=== PATIENT | female | born 1970 | race Caucasian/White ===

== ENCOUNTER 2018-02-09 11:35 | Emergency (ER) | payer OTHER ==
[2018-02-09 12:38] VITALS: BP 122/74
--- NOTE | 2018-02-09 13:22 | UC ---
Dizzy HPI HPI Summary: Pt c/o sudden onset of dizziness, room spinning, syncope, nausea, vomiting, 4 days ago. Pt states symptoms has improved, nearly resolved since initial onset but continues to feel a little, nauseated, has neck pain and stiffness. Denies, injury or trauma, does report high levels of distress at work and at home. Has c/o upper back and neck pain and stiffness. Has hx of degenerative disc disease - History Of Current Complaint Stated Complaint: HEAD ACHE,DIZZINESS Time Seen by Provider: 02/09/18 12:23 Hx Obtained From: Patient Hx Last Menstrual Period: 10/31/13 ?: No Onset/Duration: Sudden Onset, Resolved Timing: Constant Severity Initially: Severe Severity Currently: Mild Pain Intensity: 2 Character: Room Spinning, Dizzy Aggravating Factor(s): Headache, Position Change, Change In Head Position Alleviating Factor(s): Rest, Lying Down Associated Signs And Symptoms: Positive: Nausea, Vomiting, Unsteady Gait Related History: Similar Episode/Dx as - vertigo - Risk Factors CVA Risk Factor: Negative - Allergies/Home Medications Allergies/Adverse Reactions: Allergies Allergy/AdvReac Type Severity Reaction Status Date / Time betadine Allergy Severe Blisters Uncoded 02/09/18 12:40 Home Medications: Home Medications Ketorolac TAB * [Toradol TAB *] 10 mg PO Q4HR PRN 02/09/18 [History Confirmed ] PMH/Surg Hx/FS Hx/Imm Hx Previously Healthy: Yes - Surgical History Surgical History: Yes Surgery Procedure, Year, and Place: 2 biopsies- Breast. tubal ligation, HYSTERECTOMY, Rt Oopharectomy, LEFT SHOULDER - Family History Known Family History: Positive: Cardiac Disease - Social History Occupation: Employed Full-time Lives: With Family Alcohol Use: Rare Substance Use Type: None Smoking Status (MU): Former Smoker Have You Smoked in the Last Year: No Review of Systems Constitutional: Fatigue Skin: Negative Eyes: Negative ENT: Negative Respiratory: Negative Cardiovascular: Negative Gastrointestinal: Negative Genitourinary: Negative Motor: Negative Neurovascular: Negative Neurological: Headache Psychological: Negative Is Patient Immunocompromised?: No All Other Systems Reviewed And Are Negative: Yes Physical Exam Triage Information Reviewed: Yes Appearance: Well-Appearing Vital Signs: Initial Vital Signs Temp 98.9 F 02/09/18 12:23 Pulse 67 02/09/18 12:23 Resp 16 02/09/18 12:23 BP 122/74 02/09/18 12:23 Pulse Ox 99 02/09/18 12:23 Vital Signs Reviewed: Yes Eye Exam: Normal Eyes: Positive: Other: - PERRLA ENT Exam: Normal Dental Exam: Normal Neck exam: Normal Respiratory Exam: Normal Cardiovascular Exam: Normal Musculoskeletal Exam: Normal Musculoskeletal: Positive: Strength Intact, Other: - upperlats, trigger point right side, Neurological Exam: Normal Neurological: Positive: Alert, Muscle Tone Normal Psychological Exam: Normal Skin Exam: Normal Dizzy Course/Dx - Differential Dx/Diagnosis Differential Diagnosis/HQI/PQRI: Benign Paroxysmal Positional Vertigo, Other - stress, vertigo, Provider Diagnoses: dizziness. trigger point. stress/fatigued Discharge - Sign-Out/Discharge Documenting (check all that apply): Patient Departure - Discharge Plan Condition: Stable Disposition: HOME Prescriptions: Meclizine TAB* [Antivert 12.5 TAB*] 25 mg PO Q8H PRN #15 tab PRN Reason: Dizziness Patient Education Materials: Trigger Point Pain (ED), Dizziness (ED), Neck Pain (ED) Forms: *Work Release Referrals: Louise Barragan MD [Primary Care Provider] - As Soon As Possible - Billing Disposition and Condition Condition: STABLE Disposition: Home
== END 2018-02-09 13:32 | disposition home or self-care (01) ==
LOC: UCCORT 11:35
DX: R42 Dizziness and giddiness (principal); M79.1 Myalgia; F43.9 Reaction to severe stress, unspecified; R53.83 Other fatigue; R11.2 Nausea with vomiting, unspecified; R55 Syncope and collapse; M54.9 Dorsalgia, unspecified; M54.2 Cervicalgia; M25.60 Stiffness of unspecified joint, not elsewhere classified; Z88.8 Allergy status to other drugs, medicaments and biological substances; Z87.891 Personal history of nicotine dependence
CPT/HCPCS: 99212; G0463

== ENCOUNTER 2018-03-02 10:58 | Emergency (ER) | payer OTHER ==
[2018-03-02] MEDS ORDERED: Ketorolac INJ* 30 MG/ML 1 ML VIAL IV PUSH ONE (11:24)
[2018-03-02] MEDS ORDERED: Lidocaine 1%* 5 ML VIAL ONE (11:24)
[2018-03-02] MEDS ORDERED: NS 0.9% 1000 ML* 1,000 ML IV ONE (11:24)
[2018-03-02] MEDS ORDERED: diPHENhydraMINE IV* 50 MG/ML 1 ml VIAL (BENADRYL) IV ONE (11:24)
[2018-03-02] MEDS ORDERED: Metoclopramide IV* 5 MG/ML 2 ML VIAL IV ONE (11:24)
[2018-03-02] MEDS ORDERED: Lidocaine 1% INJ* 10 MG/ML 30 ML SDV INJ ONE (11:24)
[2018-03-02 11:36] LABS: ABS Basophils 0 10^3/ul (0-0.2); ABS Eosinophils 0.1 10^3/ul (0-0.6); ABS Lymphocytes 1.3 10^3/ul (1.0-4.8); ABS Monocytes 0.4 10^3/ul (0-0.8); ABS Neutrophils 3.2 10^3/ul (1.5-7.7); ABS Nucleated RBC 0 10^3/ul; Eosinophil % 1.6 % (0-6); Hematocrit 44 % (35-47); Lymphocyte % 24.9 % (25-47); Mean Corpuscular HGB Conc 34 g/dl (31-36); Mean Corpuscular Hemoglobin 31 pg (27-31); Mean Corpuscular Volume 91 fL (80-97); Mean Platelet Volume 8.2 um3 (7.4-10.4); Nucleated Red Blood Cells % 0; Platelet Count 247 10^3/ul (150-450); Red Blood Count 4.86 10^6/ul (4.00-5.40); Red Cell Distribution Width 13 % (10.5-15)
[2018-03-02 11:45] LABS: INR 0.9 (0.77-1.02)
[2018-03-02 11:58] LABS: EGFR Non-African American 61.8 (>60)
[2018-03-02 12:07] LABS: Body Fluid Source Cerebral Spinal
--- NOTE | 2018-03-02 12:08 | ED ---
Dizziness - HPI Summary HPI Summary: This is bernice Balbuena documenting for attending Dr. Marko Nuno This patient is a 47 year old F presenting to [facility] accompanied by her daughter with a chief complaint of dizziness since 02/22/18. She noted rotational dizziness the first night, but now the sx are constant lightheadedness, ASTORGA, intermittent numbness in hands and feet, aphasia, hearing changes, and claims she couldnt write her name. Pt denies back pain. FHx uterine, ovarian, cervical , breast, pancreatic, melanoma, in great aunts. Pt takes meclizine for dizziness , toradol for migraines. MRI due to dizziness, ASTORGA, leptomeningeal enhancement with edema, concern for metastatic cause, PMHx uterine, cervical cancer, SHx hysterectomy, Dr. Uriarte shared concern for possible breast cancer. - History Of Current Complaint Stated Complaint: HEADACHES/DIZZINESS/NUMBNESS IN HANDS & FEET Time Seen by Provider: 03/02/18 11:00 Hx Obtained From: Patient Onset/Duration: Still Present Timing: Constant Severity Initially: Moderate Severity Currently: Moderate Character: Lightheaded - current, Dizzy - at first Aggravating Factor(s): Nothing Alleviating Factor(s): Other - meclizine Associated Signs And Symptoms: Positive: Change In Medication, OTC Medications, Other: - ASTORGA. Negative: Visual Changes, Fever - Allergies/Home Medications Allergies/Adverse Reactions: Allergies Allergy/AdvReac Type Severity Reaction Status Date / Time Adhesive Tape Allergy Rash Verified 03/02/18 11:11 betadine Allergy Severe Blisters Uncoded 03/02/18 11:11 Home Medications: Home Medications Cyclobenzaprine TAB* [Flexeril 10 MG TAB*] 10 mg PO TID PRN 03/02/18 [History Confirmed 03/02/18] PMH/Surg Hx/FS Hx/Imm Hx Endocrine/Hematology History: Denies: Hx Diabetes Cardiovascular History: Denies: Hx Hypertension, Hx Pacemaker/ICD History: Denies: Hx Renal Disease Sensory History: Reports: Hx Contacts or Glasses Denies: Hx Hearing Aid Opthamlomology History: Reports: Hx Contacts or Glasses EENT History: Denies: Hx Deafness Neurological History: Reports: Hx Headaches Psychiatric History: Denies: Hx Panic Disorder - Cancer History Cancer Type, Location and Year: CERVICAL-2003 AND UTERINE CA-2013 Hx Chemotherapy: No Hx Radiation Therapy: No - Surgical History Surgery Procedure, Year, and Place: 2 biopsies- Breast. tubal ligation,. HYSTERECTOMY,. Rt Oopharectomy,. LEFT SHOULDER Infectious Disease History: Yes Infectious Disease History: Reports: Hx Hepatitis - h/o having + Hep C antibodies Denies: Traveled Outside the [place] in Last 30 Days - Family History Known Family History: Positive: Cardiac Disease, Other - breast, ovarian, uterine, pancreatic, skin cancer - Social History Alcohol Use: None Substance Use Type: Reports: None Hx Tobacco Use: Yes Smoking Status (MU): Former Smoker Have You Smoked in the Last Year: No Review of Systems Negative: Fever Negative: Blurred Vision, Diplopia Positive: Other - hearing loss Positive: no symptoms reported Negative: Myalgia - back Neurological: Other - dizziness, lightheadedness, aphasia, unable to write name (1x episode) Positive: Headache, Paresthesia, Numbness All Other Systems Reviewed And Are Negative: Yes Physical Exam - Summary Physical Exam Summary: Appearance: Well appearing, no pain distress Skin: warm, dry, reflects adequate perfusion Head/face: normal Eyes: EOMI, LUZ ELENA ENT: normal Neck: supple, non-tender, no-meningismus Respiratory: CTA, breath sounds present Cardiovascular: RRR, pulses symmetrical Abdomen: non-tender, soft Bowel Sounds: present Musculoskeletal: normal, strength/ROM intact Neuro: normal, sensory motor intact, A&Ox3, cranial nerves intact Triage Information Reviewed: Yes Vital Signs On Initial Exam: Initial Vitals Temp Pulse Resp BP Pulse Ox 98.3 F 86 18 146/79 99 03/02/18 11:05 03/02/18 11:05 03/02/18 11:05 03/02/18 11:05 03/02/18 11:05 Vital Signs Reviewed: Yes Procedures - Lumbar Puncture Midline Position: Sitting Aseptic Technique: Local Anesthesia Anesthesia Used: 1.0% Lido Spinal Needle Used: 22 Gauge Lumbar Puncture Note: 12 ccs clear fluid with single puncture, dressed with a band-aid. Diagnostics - Vital Signs Vital Signs Temp Pulse Resp BP Pulse Ox 03/02/18 11:05 98.3 F 86 18 146/79 99 - Laboratory Lab Results: Lab Results 03/02/18 03/02/18 03/02/18 Range/Units 11:22 11:22 11:22 WBC 5.0 (3.5-10.8) 10^3/ul RBC 4.86 (4.00-5.40) 10^6/ul Hgb 15.0 (12.0-16.0) g/dl Hct 44 (35-47) % MCV 91 (80-97) fL MCH 31 (27-31) pg MCHC 34 (31-36) g/dl RDW 13 (10.5-15) % Plt Count 247 (150-450) 10^3/ul MPV 8.2 (7.4-10.4) um3 Neut % (Auto) 64.3 (38-83) % Lymph % (Auto) 24.9 L (25-47) % Meeker % (Auto) 8.5 H (0-7) % Eos % (Auto) 1.6 (0-6) % Baso % (Auto) 0.7 (0-2) % Absolute Neuts (auto) 3.2 (1.5-7.7) 10^3/ul Absolute Lymphs (auto) 1.3 (1.0-4.8) 10^3/ul Absolute Monos (auto) 0.4 (0-0.8) 10^3/ul Absolute Eos (auto) 0.1 (0-0.6) 10^3/ul Absolute Basos (auto) 0 (0-0.2) 10^3/ul Absolute Nucleated RBC 0 10^3/ul Nucleated RBC % 0 INR (Anticoag Therapy) 0.90 (0.77-1.02) APTT 32.1 (26.0-36.3) seconds Sodium 140 (135-145) mmol/L Potassium 4.0 (3.5-5.0) mmol/L Chloride 105 (101-111) mmol/L Carbon Dioxide 28 (22-32) mmol/L Anion Gap 7 (2-11) mmol/L BUN 19 (6-24) mg/dL Creatinine 0.96 H (0.51-0.95) mg/dL Est GFR ( Amer) 74.7 (>60) Est GFR (Non-Af Amer) 61.8 (>60) BUN/Creatinine Ratio 19.8 (8-20) Glucose 80 (70-100) mg/dL Calcium 9.3 (8.6-10.3) mg/dL Total Bilirubin 0.40 (0.2-1.0) mg/dL AST 40 H (13-39) U/L ALT 73 H (7-52) U/L Alkaline Phosphatase 90 (34-104) U/L Total Protein 6.8 (6.4-8.9) g/dL Albumin 4.2 (3.2-5.2) g/dL Globulin 2.6 (2-4) g/dL Albumin/Globulin Ratio 1.6 (1-3) Result Diagrams: 03/02/18 11:22 03/02/18 11:22 Lab Statement: Any lab studies that have been ordered have been reviewed, and results considered in the medical decision making process. - CT Chest/A/P CT Interpretation: No Acute Changes CT Interpretation Completed By: Radiologist - NO ACUTE CT PATHOLOGY OF THE CHEST , ABDOMEN, OR PELVIS. NO LYMPHADENOPATHY BY SIZE CRITERIA. Dr. Zhu has reviewed this report. - EKG 1129 Cardiac Rate: NL - 78 EKG Rhythm: Sinus Rhythm ST Segment: Normal Ectopy: None EKG Interpretation: nl axis Re-Evaluation - Re-Evaluation First Eval Re-Evaluation Time: 14:05 Change: Unchanged Comment: Discussed discharge after dr. Uriarte sees pt in ED. Dizzy Course/Dx - Course Course Of Treatment: Patient presents by direction of primary care physician for evaluation for possible meningeal carcinomatosis. Oncologist has directed the care to include lumbar puncture, CT abdomen and pelvis and chest. The CT failed to identify any malignant source. The lumbar puncture shows protein of 47. Oncologist reviewed this and feels the patient can be safely discharged. I talked to Dr. Eduardo from neurology who will see the patient outpatient. She 'll be followed up by oncology and her primary care physician. - Diagnoses Provider Diagnoses: Vertigo, Carcinomatosis - Provider Notifications Discussed Care Of Patient With: Rubens Uriarte Time Discussed With Above Provider: 14:00 Instructed by Provider To: Other - Will see pt in ED, wants to discharge pt. Asked who radiologist who read CT was. Discharge - Sign-Out/Discharge Documenting (check all that apply): Patient Departure - discharge - Discharge Plan Condition: Stable Disposition: HOME Patient Education Materials: Vertigo (ED) Referrals: Tom Eduardo MD [Medical Doctor] - Louise Barragan MD [Primary Care Provider] - Rubens Uriarte MD [Medical Doctor] - - Billing Disposition and Condition Condition: STABLE Disposition: Home Consult Consult: [id number] Dr. Eduardo: discussed pt, discussion with dr. uriarte, dr uriarte will follow up with Dr. Eduardo.
[2018-03-02] MEDS ORDERED: Iohexol 300* (CONTRAST) 10 ML SDV IV ONE (12:25)
--- NOTE | 2018-03-02 13:18 | RAD ---
HISTORY: cancer eval COMPARISONS: March 25, 2016 TECHNIQUE: Multiple contiguous axial CT scans were obtained of the chest, abdomen, and pelvis after the administration of intravenous contrast. Coronal and sagittal multiplanar reformations are submitted for review.. Oral contrast was not administered. Delayed images were obtained through the abdomen and pelvis. FINDINGS: CHEST NECK AND THYROID: The lower neck and thyroid are unremarkable. CHEST WALL: There is no lower cervical, axillary, or supraclavicular lymphadenopathy by size criteria. HEART AND PERICARDIUM: The heart is unremarkable. AORTA AND PULMONARY VASCULATURE: The aorta and pulmonary vasculature are normal. MEDIASTINUM: There is no mediastinal lymphadenopathy by size criteria. JACKSON: There is no hilar lymphadenopathy by size criteria. AIRWAY AND ESOPHAGUS: The airway is unremarkable, without endobronchial filling defect. The esophagus is grossly normal. LUNG PARENCHYMA: The lungs are clear. PLEURA: No pleural abnormalities are noted. BONES AND SOFT TISSUES: No bone or soft tissue abnormalities are noted. ABDOMEN/PELVIS: LIVER: There is a stable low-attenuation lesion of the right lobe of liver that has imaging characteristics of a hemangioma on the previous examination. BILE DUCTS: There is no intrahepatic or extrahepatic biliary dilatation. GALLBLADDER: The gallbladder is normal, without pericholecystic inflammatory change. PANCREAS: The pancreas is normal, without mass or ductal dilatation. SPLEEN: Normal in size and appearance. UPPER GI TRACT: Evaluation of the gastrointestinal tract is limited by incomplete gastric distention. The upper GI tract is unremarkable. SMALL BOWEL & MESENTERY: The small bowel is normal in contour, course, and caliber. There is no obstruction or dilatation. COLON: The colon is normal in contour, course, caliber. There is no pericolonic inflammatory change. ADRENALS: Normal bilaterally. KIDNEYS: There is stable parapelvic renal cyst on the left. BLADDER: The bladder is smooth in contour. PELVIC ORGANS: The pelvic organs are not visualized. AORTA: The aorta is normal. IVC: Unremarkable LYMPH NODES: There is no lymphadenopathy by size criteria. ABDOMINAL WALL: There is no evidence for abdominal wall hernia. BONES AND SOFT TISSUES: There are mild diffuse degenerative changes. OTHER: None IMPRESSION: NO ACUTE CT PATHOLOGY OF THE CHEST, ABDOMEN, OR PELVIS. NO LYMPHADENOPATHY BY SIZE CRITERIA.
[2018-03-02 16:12] VITALS: BP 139/78
== END 2018-03-02 16:15 | disposition home or self-care (01) ==
LOC: ED 10:58
DX: R42 Dizziness and giddiness (principal); C80.0 Disseminated malignant neoplasm, unspecified; Z85.41 Personal history of malignant neoplasm of cervix uteri; Z90.710 Acquired absence of both cervix and uterus; Z80.41 Family history of malignant neoplasm of ovary; Z80.49 Family history of malignant neoplasm of other genital organs; Z87.891 Personal history of nicotine dependence; Z79.899 Other long term (current) drug therapy; Z88.8 Allergy status to other drugs, medicaments and biological substances
CPT/HCPCS: 36415; 62270; 71260; 74177; 80053; 82945; 84157; 85025; 85610; 85730; 86300; 86301; 86304; 86703; 87070; 87205; 88112; 89051; 93005; 96361; 96374; 96375; 99283; J1200; J1885; J2765; Q9967

== ENCOUNTER 2019-01-23 17:42 | Emergency (ER) | payer OTHER ==
[2019-01-23 18:30] VITALS: BP 127/84
--- NOTE | 2019-01-23 19:05 | UC ---
Knee Pain HPI - HPI Summary HPI Summary: 48-year-old female comes in with a chief complaint of right knee pain. 2 weeks ago patient was at work she was lifting a box had sudden onset of pain in the right knee. The worst pain in the right knee is an the anterior lateral aspect of the knee. She has swelling there. She feels unstable side to side. Pain is worse with flexion. Does not feel like us to get out. Also has pain in the back of any. Has had a history of injuring menisci in the past. - History of Current Complaint Chief Complaint: UCLowerExtremity Stated Complaint: W/C RIGHT KNEE INJURY Time Seen by Provider: 01/23/19 18:48 Hx Last Menstrual Period: 10/31/13 Pain Intensity: 6 - Allergies/Home Medications Allergies/Adverse Reactions: Allergies Allergy/AdvReac Type Severity Reaction Status Date / Time Adhesive Tape Allergy Rash Verified 01/23/19 18:18 betadine Allergy Severe Blisters Uncoded 01/23/19 18:18 Home Medications: Home Medications Ketorolac Tromethamine 10 mg PO Q6H PRN 01/23/19 [History Confirmed 01/23/19] Naproxen [Naproxen 250 mg tab] 500 mg PO DAILY PRN 01/23/19 [History Confirmed 01/23/19] Topiramate 25 mg PO BEDTIME PRN 01/23/19 [History Confirmed 01/23/19] PMH/Surg Hx/FS Hx/Imm Hx Previously Healthy: Yes - Surgical History Surgical History: Yes Surgery Procedure, Year, and Place: 2 biopsies- Breast. tubal ligation,. HYSTERECTOMY,. Rt Oopharectomy,. LEFT SHOULDER - Family History Known Family History: Positive: Cardiac Disease, Other - breast, ovarian, uterine, pancreatic, skin cancer - Social History Alcohol Use: Rare Substance Use Type: None Smoking Status (MU): Former Smoker Type: Smokeless Tobacco Amount Used/How Often: one tin/wk Length of Time of Smoking/Using Tobacco: 6 yrs. Have You Smoked in the Last Year: No Review of Systems All Other Systems Reviewed And Are Negative: Yes Constitutional: Positive: Negative Skin: Positive: Negative Eyes: Positive: Negative ENT: Positive: Negative Respiratory: Positive: Negative Cardiovascular: Positive: Negative Gastrointestinal: Positive: Negative Motor: Positive: Other - SEE HPI Neurovascular: Positive: Negative Musculoskeletal: Positive: Other: - SEE HPI Neurological: Positive: Negative Psychological: Positive: Negative Is Patient Immunocompromised?: No Physical Exam Triage Information Reviewed: Yes Appearance: Well-Appearing, No Pain Distress, Well-Nourished Vital Signs: Initial Vital Signs Temp 98.6 F 01/23/19 18:23 Pulse 68 01/23/19 18:23 Resp 18 01/23/19 18:23 BP 127/84 01/23/19 18:23 Pulse Ox 100 01/23/19 18:23 Vital Signs Reviewed: Yes Eye Exam: Normal Eyes: Positive: Conjunctiva Clear Neck: Positive: Supple Respiratory: Positive: No respiratory distress Musculoskeletal: Positive: Other: - The right knee the right knee is swollen in the anterolateral. There is some tenderness on the lateral collateral ligament. Patient denies any pain with Jayro's. No instability to exam. Increased pain with deep flexion. Neurological: Positive: Alert, Muscle Tone Normal Psychological Exam: Normal Psychological: Positive: Normal Response To Family, Age Appropriate Behavior Skin Exam: Normal Knee Pain Course/Dx - Course Course Of Treatment: I discussed the x-rays with the patient. I do not see a fracture there appears to be effusion radiologist reading is pending. Patient will bead picker a neoprene brace for support. She tells me she has new immobilizer is not really very full. She declined crutches. Overall the plan is to have her not lifting more than 20 pounds at work and follow-up with orthopedics or sports medicine for further evaluation. - Differential Dx/Diagnosis Provider Diagnosis: Right knee pain, Effusion, right knee Discharge - Sign-Out/Discharge Documenting (check all that apply): Patient Departure All imaging exams completed and their final reports reviewed: No - Discharge Plan Condition: Stable Disposition: HOME Patient Education Materials: Swollen Knee Joint (ED), Knee Pain (ED) Forms: *Work Release Referrals: Louise Barragan MD [Primary Care Provider] - Chandler Cárdenas MD [Medical Doctor] - [facility] [Provider Group] Additional Instructions: FOLLOW UP WITH ORTHOPEDICS OR SPORTS MEDICINE. GET RECHECKED SOONER IF YOUR CONDITION WORSENS OR ANY QUESTIONS OR CONCERNS. - Billing Disposition and Condition Condition: STABLE Disposition: Home
--- NOTE | 2019-01-24 10:17 | ED ---
Progress - Progress Note Progress Note: final read xray reviewed, and no acute findings other than effusion already mentioned by Dr Lockhart Course/Dx - Diagnoses Provider Diagnoses: Right knee pain, Effusion, right knee Discharge - Sign-Out/Discharge Documenting (check all that apply): Patient Departure All imaging exams completed and their final reports reviewed: Yes - Discharge Plan Condition: Stable Disposition: HOME Patient Education Materials: Swollen Knee Joint (ED), Knee Pain (ED) Forms: *Work Release Referrals: [facility] [Provider Group] Chandler Cárdenas MD [Medical Doctor] - Louise Barragan MD [Primary Care Provider] - Additional Instructions: FOLLOW UP WITH ORTHOPEDICS OR SPORTS MEDICINE. GET RECHECKED SOONER IF YOUR CONDITION WORSENS OR ANY QUESTIONS OR CONCERNS. - Billing Disposition and Condition Condition: STABLE Disposition: Home
== END 2019-01-23 19:41 | disposition home or self-care (01) ==
LOC: UCCORT 17:42
DX: M25.461 Effusion, right knee (principal); Z87.891 Personal history of nicotine dependence
CPT/HCPCS: 99211; G0463

== ENCOUNTER 2019-11-01 11:51 | Emergency (ER) | payer OTHER ==
--- OUTSIDE RECORDS SUMMARY | 2019-11-01 11:58 | XMS REPORT | Continuity of Care Document ---
:1970 External Reference #:[id number] Author Name Ethel Arteaga M.D. (transmitted by agent of provider Kiana Seo) Address [address] [place] [address] [place] [address] Care Team Providers Name Role Phone Savannah Hauser MD - Care Team Information Plumbing Service Technician [phone] Endocrinology, Diabetes & Metabolism Louise Barragan MD - Internal Care Team Information Plumbing Service Technician [phone] [facility] Care Team Information Plumbing Service Technician [phone] Disorder - Clinic/Center Problems Active Problems Provider Date Abnormal gait Tom Eduardo M.D. Onset: 03/03/2018 Localized, primary osteoarthritis Ethel Arteaga M.D. Onset: 10/09/2019 Social History Type Date Description Comments Sex Unknown Tobacco Use Start: Unknown End: Former Cigarette Smoker 1 Unknown 1/2 Packs Daily Smoking Status Reviewed: 10/16/19 Former Cigarette Smoker 1 1/2 Packs Daily ETOH Use Rarely consumes alcohol Tobacco Use Start: Unknown End: Patient is a former smoker Unknown Recreational Drug Use Denies Drug Use Exercise Type/Frequency Walks daily Allergies, Adverse Reactions, Alerts Active Allergies Reaction Severity Comments Date Betadine Blisters 06/01/2012 Medications Active Medications SIG Qnty Indications Ordering Date Provider Meloxicam 1 by mouth every 90tabs M25.561 Ethel Arteaga 10/09/2019 15mg Tablets day MDonovan Aimovig inject sq once a 1ml G43.009 Tom Juárez 09/07/2019 70mg/ml Solution layla Eduardo M.D. Auto-Inject Cyclobenzaprine HCL take 1 tablet by Unknown 10mg mouth three Tablets times a day if needed Ketorolac Tromethamine take 1 tablet by 20taumer Juárez 10mg mouth every 4 to Nurys Eduardo Tablets 6 hours if needed with food for five days. Meclizine HCL 2 as needed Unknown 12.5mg Tablets Naproxen Sodium as needed Unknown 220mg Capsules Triamcinolone Acetonide as directed Unknown 0.1% Ointment Medications Administered in Office Medication SIG Qnty Indications Ordering Provider Date Depomedrol 40MG Torey Lucas, DEEPALI 06/22/2019 Injection Depomedrol 40MG Torey Lucas, DEEPALI 06/22/2019 Injection Celestone 3 mg and 3mg Chandler Cárdenas MD 02/08/2019 Injection Immunizations Description No Information Available Vital Signs Date Vital Result Comment 10/16/2019 10:55am Height 65 inches 5'5" Weight 220.00 lb Heart Rate 76 /min BP Systolic 124 mmHg BP Diastolic 86 mmHg Body Temperature 96.8 F Pain Level 2 BMI (Body Mass Index) 36.6 kg/m2 10/09/2019 9:46am Height 65 inches 5'5" Weight 220.00 lb Heart Rate 83 /min BP Systolic 136 mmHg BP Diastolic 82 mmHg Body Temperature 98.0 F Pain Level 6 BMI (Body Mass Index) 36.6 kg/m2 Results Description No Information Available Procedures Date Code Description Status 09/04/2019 06027 Sleep Study Unattended,HRT Rate,Oxygen Sat,Resp Completed Effort/Airflow Medical Devices Description No Information Available Encounters Type Date Location Provider Dx Diagnosis Office Visit 10/09/2019 [facility] Ethel Arteaga, M25.561 Pain in right 9:30a at [facility].Asim knee M25.461 Effusion, right knee M17.11 Unilateral primary osteoarthritis, right knee M23.8x1 Other internal derangements of right knee Office Visit 10/05/2019 [facility] G47.33 Obstructive sleep 10:30a [facility] Benitez apnea (adult) Campaign Advisor (pediatric) G47.00 Insomnia, unspecified Office Visit 09/07/2019 [place], G43.009 Migraine w/o 3:30p [facility] IMPLEMENTATION LEAD aura, not Campaign Advisor intractable, w/o status migrainosus M54.2 Cervicalgia R26.89 Other abnormalities of gait and mobility Office Visit 09/04/2019 1:30p [facility] Brigitte G47.9 Sleep disorder, [facility] MD Pb unspecified Campaign Advisor G47.00 Insomnia, unspecified R53.83 Other fatigue Office Visit 05/11/2019 Ciara Rojas M22.41 Chondromalacia 10:00a [facility], MD price, right knee Tj Assessments Date Code Description Provider 10/16/2019 M25.561 Pain in right knee Ethel Chandler, M.D. 10/16/2019 M25.461 Effusion, right knee Ethel Chandler, M.D. 10/16/2019 M17.11 Unilateral primary osteoarthritis, right Ethel Chandler, M.D. knee 10/09/2019 M25.561 Pain in right knee Ethel Chandler, M.D. 10/09/2019 M25.461 Effusion, right knee Ethel Cahndler, M.D. 10/09/2019 M17.11 Unilateral primary osteoarthritis, right Ethel Chandler, M.D. knee 10/09/2019 M23.8x1 Other internal derangements of right knee Ethel Chandler, M.D. 10/05/2019 G47.33 Obstructive sleep apnea (adult) (pediatric) Lilibeth Benitez NP 10/05/2019 G47.00 Insomnia, unspecified Lilibeth Benitez NP 09/07/2019 G43.009 Migraine without aura, not intractable, Torey Lucas NP without status migrainosus 09/07/2019 M54.2 Cervicalgia Torey Lucas NP 09/07/2019 R26.89 Other abnormalities of gait and mobility Torey Lucas NP 09/04/2019 G47.33 Obstructive sleep apnea (adult) (pediatric) Brigitte Ambriz MD 09/04/2019 G47.9 Sleep disorder, unspecified Brigitte Ambriz MD 09/04/2019 G47.00 Insomnia, unspecified Brigitte Ambriz MD 09/04/2019 R53.83 Other fatigue Brigitte Ambriz MD 06/22/2019 M54.2 Cervicalgia Torey Lucas NP 06/22/2019 G43.009 Migraine without aura, not intractable, Torey Lucas, IMPLEMENTATION LEAD without status migrainosus 06/22/2019 M54.81 Occipital neuralgia Torey Lucas, DEEPALI 06/22/2019 G43.009 Migraine without aura, not intractable, Torey Lance, IMPLEMENTATION LEAD without status migrainosus 06/22/2019 M54.2 Cervicalgia Torey Lucas, IMPLEMENTATION LEAD 06/22/2019 M54.81 Occipital neuralgia Torey Lucas, DEEPALI 05/11/2019 M22.41 Chondromalacia patellae, right knee Chandler Cárdenas MD Plan of Treatment Future Appointment(s):11/24/2019 2:30 pm - Lilibeth Benitez NP at [facility]12/07/2019 3:30 pm - Torey Lucas NP at [facility]10/16/2019 - Ethel Arteaga M.D.M25.561 Pain in right kneeFollow up:Follow up: Syn[facility] authorization needed. Follow up appointment [facility]. Right kneeM25.461 Effusion, right kneeM17.11 Unilateral primary osteoarthritis, right knee Functional Status Description No Information Available Mental Status Description No Information Available Referrals Description No Information Available
--- OUTSIDE RECORDS SUMMARY | 2019-11-01 11:58 | XMS REPORT | Continuity of Care Document ---
:1970 External Reference #:[id number] Author Name Louise Barragan M.D. Address [address] [place] [address] Care Team Providers Name Role Phone Louise Barragan - Family Medicine Care Team Information Trolley Cleaner Tom Eduardo MD - Neurology Care Team Information Trolley Cleaner [phone] Chelsea Dyer - Obstetrics & Care Team Information Trolley Cleaner Gynecology Problems Active Problems Provider Date Overweight Louise Barragan M.D. Onset: 12/06/2012 Cyst of ovary Louise Barragan M.D. Onset: 12/06/2012 Social History Type Date Description Comments Sex Unknown Tobacco Use Start: Unknown End: Former Cigarette Smoker Quit August 2011. Unknown Smokeless Tobacco Former Smokeless Tobacco Stopped chewing User, Used Eight Times tobacco 04/2019. Daily ETOH Use Occasional Tobacco Use Start: Unknown End: Patient is a former stopped smoking 2011. Unknown smoker stopped chewing tobaco 04/2019 . Smoking Status Reviewed: 08/10/19 Patient is a former stopped smoking 2011. smoker stopped chewing tobaco 04/2019 . Allergies, Adverse Reactions, Alerts Active Allergies Reaction Severity Comments Date Betadine 06/04/2010 Medications Active Medications SIG Qnty Indications Ordering Date Provider Physical Therapy evaluate and M25.561 Louise Rueda 09/29/2019 treat right knee Nurys Barragan pain Triamcinolone Acetonide apply twice a day 30gm Louise Rueda 08/10/2019 to severe rash Nurys Barragan 0.1% Cream Trazodone HCL take 1/2 - 1 pill 30tabs G47.09 Louise Talamantes. 06/09/2019 50mg Tablets by mouth at hs. Yung M.D. Cyclobenzaprine HCL 1 by mouth three 90tabs Frieda Gregor, 02/16/2018 10mg times a day as CHARGER Tablets needed Ketorolac Tromethamine 1 by mouth every 14tabs Frieda Gregor, 02/04/2018 10mg 4-6h as needed CHARGER Tablets with food Meclizine HCL 2 by mouth three 60tabs Frieda Gregor, 12.5mg times a day as CHARGER Tablets needed dizziness Naproxen DR 1 tab by mouth Unknown 500mg Tablets twice a day as DR needed Immunizations CPT Code Status Date Vaccine Lot # [id number] Given 12/06/2012 Tdap Tetanus, W Pertussis [id number] Vital Signs Date Vital Result Comment 09/29/2019 9:13am BP Systolic 110 mmHg BP Diastolic 72 mmHg Heart Rate 72 /min Body Temperature 98.1 F Respiratory Rate 16 /min Weight 222.00 lb 08/10/2019 2:42pm BP Systolic 128 mmHg BP Diastolic 80 mmHg Heart Rate 60 /min Body Temperature 97.5 F Respiratory Rate 20 /min Weight 225.38 lb Results Test Acquired Date Facility Test Result H/L Range Note Hep C Virus Rna 09/07/2019 [facility] Hepatitis C HCV Not 1, 2 QNT W/RFX [facility] Quantitation [place] [address] IU/mL (607)- - HCV log10 TNP ayg69UM/mL 3 Test Information: See Comment: 4 HCV Genotype TNP 5 U1 SPEEDBOAT OPERATOR/SNRNP Igg Autoabs 08/10/2019 [facility] U1 SPEEDBOAT OPERATOR IgG Autoabs <0.2 U 6 Ssa/SSB Abs Igg 08/10/2019 [facility] SS-A/Ro Antibody <0.2 U 7 SS-B/La Antibody <0.2 U 8 Connective Tissue Panel 08/10/2019 [facility] Anti-Nuclear Antibody 0.2 U 9 Cyclic Citrullinated Peptide <15.6 U 10 Interpretation See Comment 11 Laboratory test 08/10/2019 [facility] HCV AB (Fma) positive negative finding (607)- - Sedimentation Rate 2mm 0-15 M 0-20 F Laboratory test finding 08/10/2019 [facility] C Reactive Protein 1.26 mg/L Normal <8.01 12 Rheumatoid Factor < 10 IU/mL Normal <15 13 Cyclic Citrullinated Pep Igg TNP () 14 Laboratory test finding 06/09/2019 José Miguel C[facility]) TSH 1.06 mIU/L 0.50-6.00 Vitamin D25 34 30-100 CBC Electronic a 06/09/2019 Valdez Cierra([facility]) WBC 4.3 x10^3/UL 4.0- 10.0 RBC 4.84 x10^6/UL 3.93-6.00 HGB 14.7 g/dL 12.0-17.0 HCT 45 % 35-50 MCV 91.9 fL 80.0-95.0 MCH 30.4 pg 25.6-32.2 MCHC 33.0 g/dL 32.2-36.0 RDW-CV 12.4 % 11.6-14.4 PLT 221 x10^3/UL 163-400 MPV 10.1 fL 9.4-12.4 Brown# 2.51 x10^3/UL 1.56-6.13 Lymph# 1.36 x10^3/UL 1.18-3.74 [place]kin# 0.31 x10^3/UL 0.24-0.82 Eos # 0.1 x10^3/UL 0.0-0.5 Baso # 0.01 x10^3/UL 0.01-0.08 Brown% 59.1 % 34.0-70.0 Lymph % 32.0 % 20.0-52.0 [place]kin% 7.3 % 5.0-12.0 Eos% 1.4 % 0.7-7.0 Baso% 0.2 % 0.1-1.2 Comprehensive Metabolic 06/09/2019 Val[facility] Cierra([facility]) Sodium 139 mEq/L 134-149 Prof Potassium 4.1 mEq/L 3.6-5.5 Chloride 107 mEq/L 94-112 Carbon Dioxide 25 mEq/L 21-32 Glucose 104 mg/dL 70-105 BUN 20 mg/dL 6-26 Creatinine 0.9 mg/dL 0.6-1.4 BUN/Creat Ratio 22.2 CALC 8.0-36.0 Calcium 8.7 mg/dL 8.6-10.2 Total Protein 7.0 g/dL 6.4-8.3 Albumin 4.9 g/dL 3.8-5.5 Globulin 2.1 g/dL 2.0-4.8 A/G Ratio 2.3 CALC 0.6-2.3 Alk. Phosphatase 75 U/L 30-110 Alt (SGPT) 57 U/L High 7-35 Ast (Sgot) 43 U/L High 5-34 Total Bilirubin 0.5 mg/dL 0.2-1.3 GFR Non- >60 ml/min/1.73m^ >=60 GFR >60 ml/min/1.73m^ >=60 Lipid Profile 06/09/2019 Val[facility] Cierra([facility]ma) Cholesterol 138 mg/dL 120- 200 Triglycerides 55 mg/dL 30-200 HDL Cholesterol 45 mg/dL 30-85 LDL (Calculated) 82 CALC 0-129 VLDL Cholesterol 11 mg/dL 0-50 HDL Risk Factor 3.1 CALC 0.0-4.4 Bartonella 06/09/2019 [facility] B. henselae Negative Neg:<1:320 15 Antibody Panel [address] [place] [address] [place] [address] (600)- - B. henselae IgM Negative titer Neg:<1:100 B. lewis IgG Negative titer Neg:<1:320 B. lewis IgM Negative titer Neg:<1:100 16 Babesia Microti 06/09/2019 [facility] Babesia microti <1:10 Neg:<1:10 AB Panel [address] [place] [address] [place] [address] (083)- - Babesia microti IgG <1:10 Neg:<1:10 17 Lyme, Line Blot, 06/09/2019 [facility] IgG P93 Ab. Present Abnormal Serum [address] [place] [address] (606)- - IgG P66 Ab. Absent IgG P58 Ab. Absent IgG P45 Ab. Absent IgG P41 Ab. Absent IgG P39 Ab. Absent IgG P30 Ab. Absent IgG P28 Ab. Absent IgG P23 Ab. Absent IgG P18 Ab. Absent Lyme IgG Line Blot Interp. Negative 18 IgM P41 Ab. Absent IgM P39 Ab. Absent IgM P23 Ab. Absent Lyme IgM Line Blot Interp. Negative 19 Ehrlichiosis Panel 06/09/2019 [facility] E. chaffeensis Negative Neg:<1:64 [address] [facility] [place] [address] (607)- - E. chaffeensis ([facility]) IgM Titer Negative Neg:<1:20 20 Hge IgG Titer Negative Neg:<1:64 21 Hge IgM Titer Negative Neg:<1:20 22 1 1 sst poured off frozen 2 HCV Not Detected 3 Unable to calculate result since non-numeric result obtained for component test. 4 The quantitative range of this assay is 15 IU/mL to 100 million IU/mL. 5 Not indicated 6 REFERENCE VALUE <1.0 (Negative) Test Performed by: [place] [address] Supply Person: Charlie Cruz M.D. Ph.D.; CLIA# [id number] 7 REFERENCE VALUE <1.0 (Negative) 8 REFERENCE VALUE <1.0 (Negative) Test Performed by: [place] [address] Supply Person: Charlie Cruz M.D. Ph.D.; CLIA# [id number] 9 REFERENCE VALUE <=1.0 (Negative) 10 REFERENCE VALUE <20.0 (Negative) 11 Tests for antibodies to dsDNA and TRACEY antigens are not performed automatically unless the LUCIEN result is > or = 3.0 U. Studies performed at [facility] indicate that positive LUCIEN results <3.0 U are rarely accompanied by positive second order tests. Test Performed by: [place] [address] Supply Person: Charlie Cruz M.D. Ph.D.; CLIA# [id number] 12 [id number] 5 sst 13 [id number] 5 sst 14 Cancelled due to duplicate test on this order Test Performed by: [place] [address] Supply Person: Charlie Cruz M.D. Ph.D.; CLIA# [id number] 15 3 tiger top sst 16 Note: Bartonella henselae is now regarded as the etiologic agent of Cat Scratch Disease, bacillary angiomatosis, endocarditis and fever with bacteremia. Bartonella lewis also causes bacillary angiomatosis particularly among immunocompromised patients, and trench fever. This test was developed and its performance characteristics determined by [facility]. It has not been cleared or approved by the Food and Drug Administration. The FDA has determined that such clearance or approval is not necessary. 17 This test was developed and its performance characteristics determined by [employer]. It has not been cleared or approved by the U.S. Food and Drug Administration. The FDA has determined that such clearance or approval is not necessary. This test is used for clinical purposes. It should not be regarded as investigational or research. 18 Positive: 5 of the following Borrelia-specific bands: 18,23,28,30,39,41,45,58, 66, and 93. Negative: No bands or banding patterns which do not meet positive criteria. 19 Note: An equivocal or positive EIA result followed by a negative Line Blot result is considered NEGATIVE. An equivocal or positive EIA result followed by a positive Line Blot is considered POSITIVE by the CDC. Positive: 2 of the following bands: 23,39 or 41 Negative: No bands or banding patterns which do not meet positive criteria. Criteria for positivity are those recommended by CDC/ASTPHLD. p23=Osp C, x12=gtshmabrb Note: Sera from individuals with the following may cross react in the Lyme Line Blot assays: other spirochetal diseases (periodontal disease, leptospirosis, relapsing fever, yaws, and pinta); connective autoimmune (Rheumatoid Arthritis and Systemic Lupus Erythematosus and also individuals with Antinuclear Antibody); other infections (Elsie Spotted Fever; Stephen-Werner Virus, and Cytomegalovirus). 20 IgG titers if 1:64 or greater indicate exposure or acute and convalescent samples showing a four-fold increase, and/or the presence of IgM indicate recent or current infection. 21 HGE IgG levels are detectable 7 to 10 days post infection and persist approximately one year. 22 Due to a reagent backorder, this test was performed using a different assay. The reference interval for this alternate assay is: Negative <1:64 Positive 1:64 or greater IgM levels usually rise 3 to 5 days post infection and fall to normal levels in approximately 30 to 60 days. Procedures Date Code Description Status 05/28/2017 [id number] Mammogram Completed 10/19/2016 [id number] Mammogram Completed Medical Devices Description No Information Available Encounters Type Date Location Provider Dx Diagnosis Office Visit 08/10/2019 [facility] Office Louise Rueda M15.0 Primary generalized 2:40p Nurys Barragan (osteo)arthritis B18.2 Chronic viral hepatitis C M54.2 Cervicalgia M25.552 Pain in left hip M25.551 Pain in right hip Office Visit 06/09/2019 10:40a [facility] Office Luoise Rueda G47.09 Other insomnia Nurys Barragan G43.009 Migraine w/o aura, not intractable, w/o status migrainosus G89.4 Chronic pain syndrome A69.20 Lyme disease, unspecified Z00.00 Encntr for general adult medical exam w/o abnormal findings E55.9 Vitamin D deficiency, unspecified G47.33 Obstructive sleep apnea (adult) (pediatric) Assessments Date Code Description Provider 09/29/2019 M25.561 Pain in right knee Louise Barragan M.D. 09/29/2019 G43.009 Migraine without aura, not intractable, Louise Barragan M.D. without status migrainosus 09/07/2019 B18.2 Chronic viral hepatitis C Louise Barragan M.D. 09/06/2019 B18.2 Chronic viral hepatitis C Louise Barragan M.D. 08/22/2019 B18.2 Chronic viral hepatitis C Louise Barragan M.D. 08/10/2019 M15.0 Primary generalized (osteo)arthritis Louise Barragan M.D. 08/10/2019 B18.2 Chronic viral hepatitis C Louise Barragan M.D. 08/10/2019 M54.2 Cervicalgia Louise Barragan M.D. 08/10/2019 M25.552 Pain in left hip Louise Barragan M.D. 08/10/2019 M25.551 Pain in right hip Louise Barragan M.D. 07/27/2019 G89.4 Chronic pain syndrome Louise Barragan M.D. 07/27/2019 G47.09 Other insomnia Louise Barragan M.D. 07/27/2019 G43.009 Migraine without aura, not intractable, Louise Barragan M.D. without status migrainosus 07/27/2019 R42 Dizziness and giddiness Louise Barragan M.D. 06/09/2019 G47.09 Other insomnia Louise Barragan M.D. 06/09/2019 G43.009 Migraine without aura, not intractable, Louise Barragan M.D. without status migrainosus 06/09/2019 G89.4 Chronic pain syndrome Louise Barragan M.D. 06/09/2019 A69.20 Lyme disease, unspecified Louise Barragan M.D. 06/09/2019 Z00.00 Encounter for general adult medical Louise Barragan M.D. examination without abnormal findings 06/09/2019 E55.9 Vitamin D deficiency, unspecified Louise Barragan M.D. 06/09/2019 G47.33 Obstructive sleep apnea (adult) Louise Barragan M.D. (pediatric) Plan of Treatment Future Appointment(s):12/01/2019 2:40 pm - Louise Barragan M.D. at [facility]09/29/2019 - Louise Barragan M.D.M25.561 Pain in right kneeNew Medication:Physical Therapy - evaluate and treat right knee painComments:refer to ortho. script for PT - would wait until agree with DARIN gomez.G43.009 Migraine without aura, not intractable, without status migrainosusComments:follow up with neuro soon.AllComments:Medication Management Patient Understands medications she 's taking? Yes No Are there Barriers to Adherence? Yes No Has the patient been asked about herbal supplements and therapies, and OTC meds? Yes No Care Plan1. Patient has been queried about patient's goals/preferences and functional/ lifestyle goals at relevant visits. If relevant, describe: na2. Treatment goals as explained to the patient: above3. Are there barriers to meeting treatment goals? Yes No If Yes, please describe:4. Self-Management goals as described to the patient: Yes No Functional Status Description No Information Available Mental Status Description No Information Available Referrals Refer to Reason for Referral Status Appt Date [facility] Sleep Clinic sleep study jw Scheduled 09/04/[address],[place] [address] [phone]
--- OUTSIDE RECORDS SUMMARY | 2019-11-01 11:58 | XMS REPORT | Continuity of Care Document ---
:1970 External Reference #:[id number] Author Name Ethel Arteaga M.D. Address [address] [place] [address] Care Team Providers Name Role Phone Savannah Hauser MD - Care Team Information Eeler [phone] Endocrinology, Diabetes & Metabolism Louise Barragan MD - Internal Care Team Information Eeler [phone] [facility] Movement Care Team Information Eeler [phone] Disorder - Clinic/Center Problems Active Problems Provider Date Abnormal gait Tom Eduardo M.D. Onset: 03/03/2018 Localized, primary osteoarthritis Ethel Arteaga M.D. Onset: 10/09/2019 Social History Type Date Description Comments Sex Unknown Tobacco Use Start: Unknown End: Former Cigarette Smoker 1 Unknown 1/2 Packs Daily Smoking Status Reviewed: 10/09/19 Former Cigarette Smoker 1 1/2 Packs Daily ETOH Use Rarely consumes alcohol Tobacco Use Start: Unknown End: Patient is a former smoker Unknown Recreational Drug Use Denies Drug Use Exercise Type/Frequency Walks daily Allergies, Adverse Reactions, Alerts Active Allergies Reaction Severity Comments Date Betadine Blisters 06/01/2012 Medications Active Medications SIG Qnty Indications Ordering Date Provider Aimovig inject sq once a 1ml G43.009 Tom Juárez 09/07/2019 70mg/ml Solution month Nurys Eduardo Auto-Inject Cyclobenzaprine HCL take 1 tablet by Unknown 10mg mouth three Tablets times a day if needed Ketorolac Tromethamine take 1 tablet by 20tabs Tom Juárez 10mg mouth every 4 to Nurys Eduardo Tablets 6 hours if needed with food for five days. Meclizine HCL 2 as needed Unknown 12.5mg Tablets Naproxen Sodium as needed Unknown 220mg Capsules Triamcinolone Acetonide as directed Unknown 0.1% Ointment Medications Administered in Office Medication SIG Qnty Indications Ordering Provider Date Depomedrol 40MG Torey Lucas NP 06/22/2019 Injection Depomedrol 40MG Torey Lucas NP 06/22/2019 Injection Celestone 3 mg and 3mg Chandler Cárdenas MD 02/08/2019 Injection Immunizations Description No Information Available Vital Signs Date Vital Result Comment 10/09/2019 9:46am Height 65 inches 5'5" Weight 220.00 lb Heart Rate 83 /min BP Systolic 136 mmHg BP Diastolic 82 mmHg Body Temperature 98.0 F Pain Level 6 BMI (Body Mass Index) 36.6 kg/m2 10/05/2019 8:27am Height 65 inches 5'5" Weight 218.00 lb Heart Rate 66 /min BP Systolic 118 mmHg BP Diastolic 78 mmHg O2 % BldC Oximetry 92 % BMI (Body Mass Index) 36.3 kg/m2 Results Description No Information Available Procedures Date Code Description Status 09/04/2019 06304 Sleep Study Unattended,HRT Rate,Oxygen Sat,Resp Completed Effort/Airflow Medical Devices Description No Information Available Encounters Type Date Location Provider Dx Diagnosis Office Visit 10/09/2019 [facility] Ethel Chandler, M25.561 Pain in right 9:30a at [facility].. knee M25.461 Effusion, right knee M17.11 Unilateral primary osteoarthritis, right knee Office Visit 10/05/2019 [facility] Lilibeth G47.33 Obstructive sleep 10:30a [facility] Benitez apnea (adult) Charter Coordinator (pediatric) G47.00 Insomnia, unspecified Office Visit 09/07/2019 [place] Torey Lucas, G43.009 Migraine w/o 3:30p [facility] INTERNAL MEDICINE VETERINARY TECHNICIAN aura, not Charter Coordinator intractable, w/o status migrainosus M54.2 Cervicalgia R26.89 Other abnormalities of gait and mobility Office Visit 09/04/2019 1:30p [facility] Brigitte G47.9 Sleep disorder, [facility] MD Pb unspecified Charter Coordinator G47.00 Insomnia, unspecified R53.83 Other fatigue Office Visit 05/11/2019 Ciara Rojas M22.41 Chondromalacia 10:00a Orthopedics at [place] albert Cárdenas, right knee [place] Assessments Date Code Description Provider 10/09/2019 M25.561 Pain in right knee Ethel Arteaga M.D. 10/09/2019 M25.461 Effusion, right knee Ethel Arteaga M.D. 10/09/2019 M17.11 Unilateral primary osteoarthritis, right Ethel Arteaga M.D. knee 10/05/2019 G47.33 Obstructive sleep apnea (adult) (pediatric) Lilibeth Benitez, DEEPALI 10/05/2019 G47.00 Insomnia, unspecified Lilibeth Benitez NP 09/07/2019 G43.009 Migraine without aura, not intractable, Torey Lucas NP without status migrainosus 09/07/2019 M54.2 Cervicalgia Torey Lucas, DEEPALI 09/07/2019 R26.89 Other abnormalities of gait and mobility Torey Lucas NP 09/04/2019 G47.33 Obstructive sleep apnea (adult) (pediatric) Brigitte Ambriz MD 09/04/2019 G47.9 Sleep disorder, unspecified Brigitte Ambriz MD 09/04/2019 G47.00 Insomnia, unspecified Brigitte Ambriz MD 09/04/2019 R53.83 Other fatigue Brigitte Ambriz MD 06/22/2019 M54.2 Cervicalgia Torey Lucas, DEEPALI 06/22/2019 G43.009 Migraine without aura, not intractable, Torey Lucas NP without status migrainosus 06/22/2019 M54.81 Occipital neuralgia Torey Lucas, DEEPALI 06/22/2019 G43.009 Migraine without aura, not intractable, Torey Lucas NP without status migrainosus 06/22/2019 M54.2 Cervicalgia Torey Lucas, DEEPALI 06/22/2019 M54.81 Occipital neuralgia Torey Lucas, DEEPALI 05/11/2019 M22.41 Chondromalacia patellajayda, right knee Chandler Cárdenas MD Plan of Treatment Future Appointment(s):11/24/2019 2:30 pm - Lilibeth Benitze NP at [facility]12/07/2019 3:30 pm - Torey Lucas NP at [facility]10/09/2019 - Ethel Arteaga M.D.M25.561 Pain in right kneeFollow up:Follow up: after testing is completed - mri r kneeM25.461 Effusion, right kneeNew Xrays:MRI Knee Right W/O, Ordered: M17.11 Unilateral primary osteoarthritis, right knee Functional Status Description No Information Available Mental Status Description No Information Available Referrals Description No Information Available
--- OUTSIDE RECORDS SUMMARY | 2019-11-01 11:58 | XMS REPORT | Continuity of Care Document ---
:1970 External Reference #:[id number] Author Name Ethel Arteaga M.D. (transmitted by agent of provider Kiana Seo) Address [address] [place] [address] [place] [address] Care Team Providers Name Role Phone Savannah Hauser MD - Care Team Information Marketing Regional Consultant [phone] Endocrinology, Diabetes & Metabolism Louise Barragan MD - Internal Care Team Information Marketing Regional Consultant [facility] Care Team Information Marketing Regional Consultant [phone] Disorder - Clinic/Center Problems Active Problems Provider [...] Available Procedures Date Code Description Status 09/04/2019 52245 Sleep Study Unattended,HRT Rate,Oxygen Sat,Resp Completed Effort/Airflow Medical Devices Description No Information Available Encounters Type Date Location Provider Dx Diagnosis Office Visit 10/16/2019 [facility] Ethel Arteaga, M25.561 Pain in right 11:00a at [place] M.[facility]. knee M25.461 Effusion, right knee M17.11 Unilateral primary osteoarthritis, right knee Office Visit 10/09/2019 9:30a [facility] Ethel Arteaga, M25.561 Pain in right at [place] M.[facility]. knee M25.461 Effusion, right knee M17.11 Unilateral primary osteoarthritis, right knee M23.8x1 Other internal derangements of right knee Office Visit 10/05/2019 [facility] G47.33 Obstructive sleep 10:30a [facility] [place], CAD DEVELOPER apnea (adult) Hydraulic Lift Driver (pediatric) G47.00 Insomnia, unspecified Office Visit 09/07/2019 [place] Toreynaima Lucas, G43.009 Migraine w/o 3:30p [facility] Of CAD DEVELOPER aura, not Hydraulic Lift Driver intractable, w/o status migrainosus M54.2 Cervicalgia R26.89 Other abnormalities of gait and mobility Office Visit 09/04/2019 1:30p [facility] Brigitte G47.9 Sleep disorder, [facility] [place] [facility] unspecified Hydraulic Lift Driver G47.00 Insomnia, unspecified R53.83 Other fatigue Office Visit 05/11/2019 Ciara Rossike M M22.41 Chondromalacia 10:00a Orthopedics at [facility] albert Cárdenas, right knee [place] Assessments Date Code Description Provider 10/16/2019 M25.561 Pain in right knee Ethel Chandler, M.D. 10/16/2019 M25.461 Effusion, right knee Ethel Chandler, M.D. 10/16/2019 M17.11 Unilateral primary osteoarthritis, right Ethel Chandler, M.D. knee 10/09/2019 M25.561 Pain in right knee Ethel Chandler, M.D. 10/09/2019 M25.461 Effusion, right knee Ethel Chandler, M.D. 10/09/2019 M17.11 Unilateral primary osteoarthritis, right Ethel Chandler, M.D. knee 10/09/2019 M23.8x1 Other internal derangements of right knee Ethel Chandler, M.D. 10/05/2019 G47.33 Obstructive sleep apnea (adult) (pediatric) Lilibeth Benitez, DEEPALI 10/05/2019 G47.00 Insomnia, unspecified Lilibeth Benitez, CAD DEVELOPER 09/07/2019 G43.009 Migraine without aura, not intractable, [...] Migraine without aura, not intractable, Torey Lucas CAD DEVELOPER without status migrainosus 06/22/2019 M54.81 Occipital neuralgia Torey Lucas, DEEPALI 06/22/2019 G43.009 Migraine without aura, not intractable, Torey Lucas, CAD DEVELOPER without status migrainosus 06/22/2019 M54.2 Cervicalgia Torey Lucas, DEEPALI 06/22/2019 M54.81 Occipital neuralgia Torey Lucas NP 05/11/2019 M22.41 Chondromalacia patellae, right knee Chandler Cárdenas MD Plan of Treatment Future Appointment(s):11/24/2019 2:30 pm - Lilibeth Benitez NP at [facility]12/07/2019 3:30 pm - Torey Lucas NP at [facility]10/16/2019 - Ethel Arteaga M.D.M25.561 Pain in right kneeFollow up:Follow up: Syn[employer] authorization needed. Follow up appointment [facility]. Right kneeM25.461 Effusion, right kneeM17.11 Unilateral primary osteoarthritis, right knee Functional Status Description No Information Available Mental Status Description No Information Available Referrals Description No Information Available
--- OUTSIDE RECORDS SUMMARY | 2019-11-01 11:58 | XMS REPORT | Continuity of Care Document ---
:1970 External Reference #:[id number] Author Name Lilibeth Benitez NP Address [address], [address] [place] [address] Care Team Providers Name Role Phone Savannah Hauser MD - Care Team Information Receiving Inspector [phone] Endocrinology, Diabetes & Metabolism Louise Barragan MD - Internal Care Team Information Receiving Inspector [facility] Movement Care Team Information Receiving Inspector [phone] Disorder - Clinic/Center Problems Active Problems Provider Date Abnormal gait Tom Eduardo M.D. Onset: 03/03/2018 Social History Type Date Description Comments Sex Unknown Tobacco Use Start: Unknown End: Former Cigarette Smoker 1 Unknown 1/2 Packs Daily Smoking Status Reviewed: 10/05/19 Former Cigarette Smoker 1 1/2 Packs Daily [...] Available Vital Signs Date Vital Result Comment 10/05/2019 8:27am Height 65 inches 5'5" Weight 218.00 lb Heart Rate 66 /min BP Systolic 118 mmHg BP Diastolic 78 mmHg O2 % BldC Oximetry 92 % BMI (Body Mass Index) 36.3 kg/m2 09/07/2019 2:28pm Height 65 inches 5'5" Weight 222.50 lb Heart Rate 85 /min BP Systolic Sitting 140 mmHg BP Diastolic Sitting 80 mmHg Respiratory Rate 18 /min Pain Level 7 O2 % BldC Oximetry 96 % BMI (Body Mass Index) 37.0 kg/m2 Results Description No Information Available Procedures Date Code Description Status 09/04/2019 66438 Sleep Study Unattended,HRT Rate,Oxygen Sat,Resp Completed Effort/Airflow Medical Devices Description No Information Available Encounters Type Date Location Provider Dx Diagnosis Office Visit 10/05/2019 [facility] G47.33 Obstructive sleep 10:30a [facility] Benitez apnea (adult) Religious Education Director (pediatric) G47.00 Insomnia, unspecified Office Visit 09/07/2019 [place], G43.009 Migraine w/o 3:30p [facility] Of GALLEY HAND aura, not Religious Education Director intractable, w/o status migrainosus M54.2 Cervicalgia R26.89 Other abnormalities of gait and mobility Office Visit 09/04/2019 1:30p [facility] Brigitte G47.9 Sleep disorder, [facility] Pb unspecified Religious Education Director G47.00 Insomnia, unspecified R53.83 Other fatigue Office Visit 05/11/2019 Ciara Rojas M22.41 Chondromalacia 10:00a Orthopedics at [facility] albert Cárdenas, right knee [place] Assessments Date Code Description Provider 10/05/2019 G47.33 Obstructive sleep apnea (adult) (pediatric) Lilibeth Benitez, DEEPALI 10/05/2019 G47.00 Insomnia, unspecified Lilibeth Benitez, DEEPALI 09/07/2019 G43.009 Migraine without aura, not intractable, Torey Lucas, GALLEY HAND without status migrainosus 09/07/2019 M54.2 Cervicalgia Torey Lucas, DEEPALI 09/07/2019 R26.89 Other abnormalities of gait and mobility Torey Lucas NP 09/04/2019 G47.33 Obstructive sleep apnea (adult) (pediatric) Brigitte Ambriz MD 09/04/2019 G47.9 Sleep disorder, unspecified Brigitte Ambriz MD 09/04/2019 G47.00 Insomnia, unspecified Brigitte Ambriz MD 09/04/2019 R53.83 Other fatigue Brigitte Ambriz MD 06/22/2019 M54.2 Cervicalgia Torey Lucas, GALLEY HAND 06/22/2019 G43.009 Migraine without aura, not intractable, Torey Lucas NP without status migrainosus 06/22/2019 M54.81 Occipital neuralgia Toreynaima Lucas, GALLEY HAND 06/22/2019 G43.009 Migraine without aura, not intractable, Torey Lucas, GALLEY HAND without status migrainosus 06/22/2019 M54.2 Cervicalgia Toreynaima Lucas, GALLEY HAND 06/22/2019 M54.81 Occipital neuralgia Toreynaima Lucas, GALLEY HAND 05/11/2019 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 at [id number]/07/2019 3:30 pm - Torey Lucas NP at [place] [facility]10/05/2019 - Lilibeth Benitez NPG47.33 Obstructive sleep apnea (adult) (pediatric)New Orders:Sleep-Homecare, Ordered: Follow up:6-8 weeks ([facility])Recommendations:You are being set up with CPAP for your sleep apnea through [facility] . They will call you to set up an appointment to get fit for a mask and pickler helper your machine. If youhave difficulty with your equipment, or need to replace your mask or hoses, please contact your homecare agency. If you have any further questions, please call the Sleep Disorder Center at [phone] If you have any sleepiness while driving you MUST avoid operating a vehicle or machinery. If you feel tired while driving line puller and take a nap or switch drivers. If you know you are sleepy and need to go somewhere, arrange for a ride or use public transportation. It is very important to not risk your safety or the safety of others.G47.00 Insomnia, unspecified Functional Status Description No Information Available Mental Status Description No Information Available Referrals Description No Information Available
--- OUTSIDE RECORDS SUMMARY | 2019-11-01 11:58 | XMS REPORT | Continuity of Care Document ---
:1970 External Reference #:[id number] Author Name Brigitte Ambriz MD (transmitted by agent of provider Jen Khalil) Address [address], [address] [place] [address] Care Team Providers Name Role Phone Savannah Hauser MD - Care Team Information Toll Line Inspector [phone] Endocrinology, Diabetes & Metabolism Louise Barragan MD - Internal Care Team Information Toll Line Inspector [phone] [facility] Care Team Information Toll Line Inspector [phone] Disorder - Clinic/Center Problems Active Problems Provider Date Abnormal gait Tom Eduardo M.D. Onset: 03/03/2018 Social History Type Date Description Comments Sex Unknown Tobacco Use Start: Unknown End: Former Cigarette Smoker 1 Unknown 1/2 Packs Daily Smoking Status Reviewed: 09/04/19 Former Cigarette Smoker 1 1/2 Packs Daily ETOH Use Rarely consumes alcohol Tobacco Use Start: Unknown End: Patient is a former smoker Unknown Recreational Drug Use Denies Drug Use Exercise Type/Frequency Walks daily Allergies, Adverse Reactions, Alerts Active Allergies Reaction Severity Comments Date Betadine Blisters 06/01/2012 Medications Active Medications SIG Qnty Indications Ordering Date Provider Topiramate 1 tab by mouth 30tabs G43.109 Tom Juárez 02/24/2019 50mg Tablets once a day Nurys Eduardo Cyclobenzaprine HCL take 1 tablet by Unknown [...] Triamcinolone Acetonide as directed Unknown 0.1% Ointment Trazodone HCL TK 1/2 To 1 T PO Unknown 50mg Tablets hs Medications Administered in Office Medication SIG Qnty Indications Ordering Provider Date Depomedrol 40MG Torey Lucas NP 06/22/2019 Injection Depomedrol 40MG Torey Lucas NP 06/22/2019 Injection Celestone 3 mg and 3mg Chandler Cárdenas MD 02/08/2019 Injection Immunizations Description No Information Available Vital Signs Date Vital Result Comment 09/04/2019 12:58pm Height 65 inches 5'5" Weight 210.00 lb Heart Rate 65 /min BP Systolic 128 mmHg BP Diastolic 78 mmHg O2 % BldC Oximetry 99 % BMI (Body Mass Index) 34.9 kg/m2 Neck Circumference in inches 15.5 06/22/2019 11:07am Height 65 inches 5'5" Weight 213.12 lb Heart Rate 56 /min BP Systolic Sitting 126 mmHg R BP Diastolic Sitting 80 mmHg R Respiratory Rate 18 /min Pain Level 3 O2 % BldC Oximetry 98 % BMI (Body Mass Index) 35.5 kg/m2 Results Description No Information Available Procedures Description No Information Available Medical Devices Description No Information Available Encounters Type Date Location Provider Dx Diagnosis Office Visit 09/04/2019 [facility] Brigitte Ambriz, G47.9 Sleep disorder, 1:30p Sleep Services Of unspecified Landscape Laborer G47.00 Insomnia, unspecified R53.83 Other fatigue Office Visit 05/11/2019 Ciara Rojas M22.41 Chondromalacia 10:00a Orthopedics at [place] al[place] Cárdenas, right knee [place] Office Visit 03/06/2019 Ciara Rojas M22.41 Chondromalacia 2:15p Orthopedics at [place] al[place] Cárdenas, right knee [place] Assessments Date Code Description Provider 09/04/2019 G47.9 Sleep disorder, unspecified Brigitte Ambriz MD 09/04/2019 G47.00 Insomnia, unspecified Brigitte Ambriz MD 09/04/2019 R53.83 Other fatigue Brigitte Ambriz MD 06/22/2019 M54.2 Cervicalgia Torey Stephaake, YARN SKEINS EXAMINER 06/22/2019 G43.009 Migraine without aura, not intractable, without Torey Knaake, YARN SKEINS EXAMINER status migrainosus 06/22/2019 M54.81 Occipital neuralgia Torey Stephaake, YARN SKEINS EXAMINER 06/22/2019 G43.009 Migraine without aura, not intractable, without Torey Knaake, YARN SKEINS EXAMINER status migrainosus 06/22/2019 M54.2 Cervicalgia Torey Knaake, YARN SKEINS EXAMINER 06/22/2019 M54.81 Occipital neuralgia Torey Stephaake, YARN SKEINS EXAMINER 05/11/2019 M22.41 Chondromalacia patellae, right knee Chandler Cárdenas MD 03/06/2019 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
--- OUTSIDE RECORDS SUMMARY | 2019-11-01 11:58 | XMS REPORT | Continuity of Care Document ---
:1970 External Reference #:[id number] Author Name Ethel Arteaga M.D. (transmitted by agent of provider Carla Mac) Address [address] [place] [address] Care Team Providers Name Role Phone Savannah Hauser MD - Care Team Information Asbestos Microscopist [phone] Endocrinology, Diabetes & Metabolism Louise Barragan MD - Internal Care Team Information Asbestos Microscopist [facility] Care Team Information Asbestos Microscopist [phone] Disorder - Clinic/Center Problems Active Problems Provider [...] Available Procedures Date Code Description Status 09/04/2019 88982 Sleep Study Unattended,HRT Rate,Oxygen Sat,Resp Completed Effort/Airflow Medical Devices Description No Information Available Encounters Type Date Location Provider Dx Diagnosis Office Visit 10/05/2019 [facility] Lilibeth G47.33 Obstructive sleep 10:30a [facility] [place] Benitez apnea (adult) Green Building Materials Designer (pediatric) G47.00 Insomnia, unspecified Office Visit 09/07/2019 [place] Torey Lucas, G43.009 Migraine w/o 3:30p Neurologic Serv Of FISH ROE PROCESSOR aura, not Green Building Materials Designer intractable, w/o status migrainosus M54.2 Cervicalgia R26.89 Other abnormalities of gait and mobility Office Visit 09/04/2019 1:30p [facility] Brigitte G47.9 Sleep disorder, [facility] [place] Pb unspecified Green Building Materials Designer G47.00 Insomnia, unspecified R53.83 Other fatigue Office Visit 05/11/2019 Ciara Rojas M22.41 Chondromalacia 10:00a Orthopedics at [place] al[place] Cárdenas, right knee [place] Assessments Date Code Description Provider 10/09/2019 M25.561 [...] Migraine without aura, not intractable, Torey Lucas, DEEPALI without status migrainosus 06/22/2019 M54.81 Occipital neuralgia Toreynaima Lucas, DEEPALI 06/22/2019 G43.009 Migraine without aura, not intractable, Torey Lucas NP without status migrainosus 06/22/2019 M54.2 Cervicalgia Toreynaima Lucas, FISH ROE PROCESSOR 06/22/2019 M54.81 Occipital neuralgia Toreynaima Lucas, FISH ROE PROCESSOR 05/11/2019 M22.41 Chondromalacia albert, right knee Chandler Cárdenas MD Plan of Treatment Future Appointment(s):11/24/2019 2:30 pm - Lilibeth Benitez NP at [facility]12/07/2019 3:30 pm - Torey Lucas NP at [place] [facility] Functional Status Description No Information Available Mental Status Description No Information Available Referrals Description No Information Available
--- OUTSIDE RECORDS SUMMARY | 2019-11-01 11:58 | XMS REPORT | Continuity of Care Document ---
:1970 External Reference #:[id number] Author Name Louise Barragan M.D. Address [address] [place] [address] Care Team Providers Name Role Phone Louise Barragan - Family Medicine Care Team Information Bucket [place]ucker Tom Eduardo MD - Neurology Care Team Information Bucket Chucker [phone] Chelsea Dyer - Obstetrics & Care Team Information Bucket Chucker Gynecology Problems Active Problems Provider Date Overweight [...] Medications SIG Qnty Indications Ordering Date Provider Triamcinolone Acetonide apply twice a day 30gm Louise Rueda 08/10/2019 to severe rash Nurys Barragan 0.1% Cream Trazodone HCL take 1/2 - 1 pill 30tabs G47.09 Louise Rueda 06/09/2019 50mg Tablets by mouth at [facility]alo Barragan M.D. Cyclobenzaprine HCL 1 by mouth three 90tabs Frieda Gregor, 02/16/2018 10mg times a day as CIGAR [employer]OR Tablets needed Ketorolac Tromethamine 1 by mouth every 14tabs Frieda Gregor, 02/04/2018 10mg 4-6h as needed [employer] INS[employer]OR Tablets with food Meclizine HCL 2 by mouth three 60tabs Frieda Gregor, 12.5mg times a day as CIGAR INSPECTOR Tablets needed dizziness Naproxen DR 1 tab by mouth Unknown 500mg Tablets twice a day as DR needed Immunizations CPT Code Status Date Vaccine Lot # [id number] Given 12/06/2012 Tdap Tetanus, W Pertussis [id number] Vital Signs Date Vital Result Comment 08/10/2019 2:42pm BP Systolic 128 mmHg BP Diastolic 80 mmHg Heart Rate 60 /min Body Temperature 97.5 F Respiratory Rate 20 /min Weight 225.38 lb 06/09/2019 10:49am BP Systolic 106 mmHg BP Diastolic 84 mmHg Heart Rate 58 /min Body Temperature 97.2 F Respiratory Rate 12 /min Height 65 inches 5'5" Weight 211.00 lb BMI (Body Mass Index) 35.1 kg/m2 Results Test Acquired Date Facility Test Result H/L Range Note U1 RADIOLOGIC TECHNOLOGIST/SNRNP Igg 08/10/2019 [facility] U1 RADIOLOGIC TECHNOLOGIST IgG Autoabs <0.2 U 1 Autoabs Ssa/SSB Abs Igg 08/10/2019 [facility] SS-A/Ro Antibody <0.2 U 2 SS-B/La Antibody <0.2 U 3 Connective Tissue Panel 08/10/2019 [facility] Anti-Nuclear Antibody 0.2 U 4 Cyclic Citrullinated Peptide <15.6 U 5 Interpretation See Comment 6 Laboratory test 08/10/2019 [facility] HCV AB (Fma) positive negative finding (607)- - Sedimentation Rate 2mm 0-15 M 0-20 F Laboratory test finding 08/10/2019 [facility] C Reactive Protein 1.26 mg/L Normal <8.01 7 Rheumatoid Factor < 10 IU/mL Normal <15 8 Cyclic Citrullinated Pep Igg TNP () 9 Laboratory test finding 06/09/2019 [facility]) TSH 1.06 mIU/L 0.50-6.00 Vitamin D25 34 30-100 CBC Electronic Fma 06/09/2019 [facility]) WBC 4.3 x10^3/UL 4.0- 10.0 RBC 4.84 x10^6/UL 3.93-6.00 HGB 14.7 g/dL 12.0-17.0 HCT 45 % 35-50 MCV 91.9 fL 80.0-95.0 MCH 30.4 pg 25.6-32.2 MCHC 33.0 g/dL 32.2-36.0 RDW-CV 12.4 % 11.6-14.4 PLT 221 x10^3/UL 163-400 MPV 10.1 fL 9.4-12.4 Brown# 2.51 x10^3/UL 1.56-6.13 Lymph# 1.36 x10^3/UL 1.18-3.74 Boone# 0.31 x10^3/UL 0.24-0.82 Eos # 0.1 x10^3/UL 0.0-0.5 Baso # 0.01 x10^3/UL 0.01-0.08 Brown% 59.1 % 34.0-70.0 Lymph % 32.0 % 20.0-52.0 Boone% 7.3 % 5.0-12.0 Eos% 1.4 % 0.7-7.0 Baso% 0.2 % 0.1-1.2 Comprehensive Metabolic 06/09/2019 [facility]) Sodium 139 mEq/L 134-149 Prof Potassium 4.1 [...] Bartonella 06/09/2019 [facility] B. henselae Negative Neg:<1:320 10 Antibody Panel [address] [place] [address] [place] [address] (60)- - B. henselae IgM Negative titer Neg:<1:100 B. lewis IgG Negative titer Neg:<1:320 B. lewis IgM Negative titer Neg:<1:100 11 Babesia Microti 06/09/2019 [facility] Babesia microti <1:10 Neg:<1:10 AB Panel [address] [facility] [place] [address] (60)- - Babesia microti IgG <1:10 Neg:<1:10 12 Lyme, Line Blot, 06/09/2019 [facility] IgG P93 Ab. Present Abnormal Serum [address] [place] [phone] (604)- - IgG P66 Ab. Absent IgG P58 Ab. Absent IgG P45 Ab. Absent IgG P41 Ab. Absent IgG P39 Ab. Absent IgG P30 Ab. Absent IgG P28 Ab. Absent IgG P23 Ab. Absent IgG P18 Ab. Absent Lyme IgG Line Blot Interp. Negative 13 IgM P41 Ab. Absent IgM P39 Ab. Absent IgM P23 Ab. Absent Lyme IgM Line Blot Interp. Negative 14 Ehrlichiosis Panel 06/09/2019 [facility] E. chaffeensis Negative Neg:<1:64 [address] [facility] ([facility] [place] [address] (604)- - E. chaffeensis ([facility]) IgM Titer Negative Neg:<1:20 15 Hge IgG Titer Negative Neg:<1:64 16 Hge IgM Titer Negative Neg:<1:20 17 1 REFERENCE VALUE <1.0 (Negative) Test Performed by: [facility] [place] [address] Accounting Officer: Charlie Cruz M.D. Ph.D.; CLIA# [id number] 2 REFERENCE VALUE <1.0 (Negative) 3 REFERENCE VALUE <1.0 (Negative) Test Performed by: [facility] [place] [address] Accounting Officer: Charlie Cruz M.D. Ph.D.; CLIA# [id number] 4 REFERENCE VALUE <=1.0 (Negative) 5 REFERENCE VALUE <20.0 (Negative) 6 Tests for antibodies to dsDNA and TRACEY antigens are not performed automatically unless the LUCIEN result is > or = 3.0 U. Studies performed at [facility] indicate that positive LUCIEN results <3.0 U are rarely accompanied by positive second order tests. Test Performed by: [facility] [place] [address] Accounting Officer: Charlie Cruz M.D. Ph.D.; CLIA# [id number] 7 [id number] 5 sst 8 [id number] 5 sst 9 Cancelled due to duplicate test on this order Test Performed by: [facility] - [address], [place] [address] Accounting Officer: Charlie Cruz M.D. Ph.D.; CLIA# [id number] 10 3 [facility] 11 Note: Bartonella henselae is now regarded as the etiologic agent of Cat Scratch Disease, bacillary angiomatosis, endocarditis and fever with bacteremia. Bartonella lewis also causes bacillary angiomatosis particularly among immunocompromised patients, and trench fever. This test was developed and its performance characteristics determined by [employer]. It has not been cleared or approved by the Food and Drug Administration. The FDA has determined that such clearance or approval is not necessary. 12 This test was developed and its performance characteristics determined by [employer]. It has not been cleared or approved by the U.S. Food and Drug Administration. The FDA has determined that such clearance or approval is not necessary. This test is used for clinical purposes. It should not be regarded as investigational or research. 13 Positive: 5 of the following Borrelia-specific bands: 18,23,28,30,39,41,45,58, 66, and 93. Negative: No bands or banding patterns which do not meet positive criteria. 14 Note: An equivocal or positive EIA result [...] are those recommended by CDC/ASTPHLD. p23=Osp C, [id number] Note: Sera from individuals with the following may cross react in the Lyme Line Blot assays: other spirochetal diseases (periodontal disease, leptospirosis, relapsing fever, yaws, and pinta); connective autoimmune (Rheumatoid Arthritis and Systemic Lupus Erythematosus and also individuals with Antinuclear Antibody); other infections (Ailey Spotted Fever; Stephen-Werner Virus, and Cytomegalovirus). 15 IgG titers if 1:64 or greater indicate exposure or acute and convalescent samples showing a four-fold increase, and/or the presence of IgM indicate recent or current infection. 16 HGE IgG levels are detectable 7 to 10 days post infection and persist approximately one year. 17 Due to a reagent backorder, this test was performed using a different assay. The reference interval for this alternate assay is: Negative <1:64 Positive 1:64 or greater IgM levels usually rise 3 to 5 days post infection and fall to normal levels in approximately 30 to 60 days. 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 B18.2 Chronic viral hepatitis C M54.2 Cervicalgia M25.552 Pain in left hip M25.551 Pain in right hip Office Visit 06/09/2019 10:40a [facility] Louise Rueda G47.09 Other insomnia Nurys Barragan G43.009 Migraine w/o aura, not intractable, w/o status migrainosus G89.4 Chronic pain syndrome A69.20 Lyme disease, unspecified Z00.00 Encntr for general adult medical exam w/o abnormal findings E55.9 Vitamin D deficiency, unspecified G47.33 Obstructive sleep apnea (adult) (pediatric) Assessments Date Code Description Provider 09/07/2019 B18.2 Chronic viral hepatitis C Louise [...] Barragan M.D. (pediatric) Plan of Treatment Future Appointment(s):09/29/2019 9:10 am - Louise [facility] M.D. at [facility]08/10/2019 - Louise Barragan M.D.M15.0 Primary generalized ( osteo)xfgnyasnlM56.2 Chronic viral hepatitis CM54.2 OgbwgshhuazF79.552 Pain in left hipM25.551 Pain in right hipAllNew Medication:Triamcinolone Acetonide 0.1 % - apply twice a day to severe rashComments:Medication Management Patient Understands medications she 's taking? Yes No Are there Barriers to Adherence? Yes No Has the patient been asked about herbal supplements and therapies, and OTC meds? Yes No Care Plan1. Patient has been queried about patient's goals/preferences and functional/lifestyle goals at relevant visits. If relevant, describe: na2. Treatment goals as explained to the patient: above3. Are there barriers to meeting treatment goals? Yes No If Yes, please describe:4. Self-Management goals as described to the patient: Yes No Functional Status Description No Information Available Mental Status Description No Information Available Referrals Refer to Reason for Referral Status Appt Date [facility] Sleep Clinic sleep study jw [facility] [address] [place] [phone]
--- NOTE | 2019-11-01 12:07 | UC ---
Lower Extremity/Ankle HPI - HPI Summary HPI Summary: 49 y/o female presents to the urgent care c/o left foot pain w/a bruise and swelling over the dorsal side s/p dropping and 45lb chair around 0830AM at home. Pt reports she was trying to set up a temporary office at home when she dropped the chair. She applied ice and elevated her foot, but has not taken any medication to alleviate symptoms. She is walking w/ mild limping. Denies any previous injury. She can move her toes, and denies any numbness or tingling sensation over her foot, calf pain, SOB, chest pain,abdominal pain, N/V /D. - History of Current Complaint Stated Complaint: LT FOOT INJURY Time Seen by Provider: 11/01/19 12:06 Hx Obtained From: Patient Hx Last Menstrual Period: 10/31/13 Onset/Duration: Sudden Onset, Lasting Hours - 4hrs ago, Still Present Severity Initially: Moderate Severity Currently: Moderate Pain Intensity: 5 Pain Scale Used: 0-10 Numeric Aggravating Factor(s): Ambulation Alleviating Factor(s): Rest, Elevation, Ice Able to Bear Weight: Yes - Risk Factors Gout Risk Factors: Negative DVT Risk Factors: Negative Septic Arthritis Risk Factor: Negative - Allergies/Home Medications Allergies/Adverse Reactions: Allergies Allergy/AdvReac Type Severity Reaction Status Date / Time Adhesive Tape Allergy Rash Verified 11/01/19 12:09 betadine Allergy Severe Blisters Uncoded 11/01/19 12:09 Home Medications: Home Medications NK [No Home Medications Reported] 11/01/19 [History Confirmed 11/01/19] PMH/Surg Hx/FS Hx/Imm Hx Previously Healthy: Yes - Pt denies PMHX - Surgical History Surgical History: Yes Surgery Procedure, Year, and Place: 2 biopsies- Breast. tubal ligation,. HYSTERECTOMY,. Rt Oopharectomy,. LEFT SHOULDER - Family History Known Family History: Positive: Cardiac Disease, Hypertension, Diabetes, Other - breast, ovarian, uterine, pancreatic, skin cancer - Social History Occupation: Employed Full-time Lives: With Family Alcohol Use: Rare Substance Use Type: None Smoking Status (MU): Former Smoker Type: Smokeless Tobacco Amount Used/How Often: one tin/wk Length of Time of Smoking/Using Tobacco: 6 yrs. Have You Smoked in the Last Year: No Review of Systems All Other Systems Reviewed And Are Negative: Yes Constitutional: Positive: Negative Skin: Positive: Bruising - on dorsal side of left foot s/p injury Eyes: Positive: Negative ENT: Positive: Negative Respiratory: Positive: Negative Cardiovascular: Positive: Negative Gastrointestinal: Positive: Negative Genitourinary: Positive: Negative Motor: Positive: Negative Neurovascular: Positive: Negative Musculoskeletal: Positive: Decreased ROM - left toes, Other: - left foot pain and swelling w/ a bruise s/p injury Neurological/Mental Status: Positive: Negative Psychological: Positive: Negative Is Patient Immunocompromised?: No Physical Exam - Summary Physical Exam Summary: Vital Signs Reviewed: Yes General : well developed, well nourished obese female w/o any apparent pain distress Eyes: Positive: Conjunctiva Clear - PERRLA, EOMI ENT: Positive: Normal ENT inspection, Hearing grossly normal, Pharynx normal, TMs normal Neck: Positive: Supple, Nontender, No Lymphadenopathy Respiratory: Positive: Chest non-tender, Lungs clear, Normal breath sounds, No respiratory distress Cardiovascular: Positive: RRR, No Murmur, Pulses Normal Abdomen Description: Positive: Nontender, No Organomegaly, Soft. Negative: CVA Tenderness (R), CVA Tenderness (L) Bowel Sounds: Positive: Present Musculoskeletal: Positive: Strength Intact, ROM Intact, No Edema, LEFT Foot/Toes : Pt is able to bear weight but ambulate with mild limping. LF foot : Positive ecchymosis over the 1st and 2nd Metatarsal, NO ulcers or break in skin integrity. The L foot is without obvious asymmetry or deformity when compared to the R foot. No bony step-off, No tenderness to palpation over toes, point tenderness over the dorsal side of distal foot and base of the 1st and 2nd metatarsal and sole at the same level, no tenderness of hindfoot, Decrease plantar/dorsiflexion, inversion/eversion due to pain. Distal motor and neurovascular status are intact. Neurological Exam: Normal Psychological Exam: Normal Skin Exam: Normal Triage Information Reviewed: Yes Lower Extremity Course/Dx - Course Course Of Treatment: 49 y/o female presents to the urgent care c/o left foot pain w/a bruise and swelling over the dorsal side s/p dropping and 45lb chair around 0830AM at home. Pt reports she was trying to set up a temporary office at home when she dropped the chair. She applied ice and elevated her foot, but has not taken any medication to alleviate symptoms. She is walking w/ mild limping. Denies any previous injury. She can move her toes, and denies any numbness or tingling sensation over her foot, calf pain, SOB, chest pain,abdominal pain, N/V /D. Hx obtained. LF foot X-ray ordered, Impression:There was no fracture, dislocation, soft tissue swelling or FB noted. Probably LF foot sprain. Pt's foot immobilized with marco-bandage and given a post-op shoe to avoid flexion. Advised RICE, and advised to take Ibuprofen Or Tylenol PO for pain ans swelling , If not improvement of symptoms to f/u with Orthopedic DR Cárdenas referral for further evaluation and treatment. Pt's BP is elevated today and advised to decrease salt in diet, monitor BP and f/u with PCP if BP continues to be elevated for further management. D/C instructions explained. Pt understood and agreed with plan of care. - Differential Dx/Diagnosis Differential Diagnosis/HQI/PQRI: Arthritis, Contusion, Dislocation, Fracture ( Closed), Sprain, Strain, Tendonitis Provider Diagnosis: Injury of left foot, Elevated BP without diagnosis of hypertension, Sprain of left foot Discharge ED - Sign-Out/Discharge Documenting (check all that apply): Patient Departure - D/C home All imaging exams completed and their final reports reviewed: Yes - Discharge Plan Condition: Stable Disposition: HOME Patient Education Materials: Foot Sprain (ED) Referrals: Louise Barragan MD [Primary Care Provider] - 1 Week Chandler Cárdenas MD [Medical Doctor] - 1 Week Additional Instructions: 1-Please take Ibuprofen PO q6-8hrs or Tylenol PO after meals as directed to alleviate pain and swelling. 2-Please apply ice, keep your foot immobilized with the Marco bandage ans use post-op shoe to avoid too much flexion of your foot. Avoid strenuous exercise or standing for long periods of time 3- Please f/u with your PCP or Orthopedic DR Cárdenas in 1 week if not improvement of symptoms for further evaluation and treatment. 4- Your BP is elevated today and advised to decrease salt in diet, monitor BP and f/u with PCP for further management. - Billing Disposition and Condition Condition: STABLE Disposition: Home
[2019-11-01 12:08] VITALS: BP 141/76
== END 2019-11-01 13:15 | disposition home or self-care (01) ==
LOC: UCCORT 11:51
DX: S93.602A Unspecified sprain of left foot, initial encounter (principal); S90.32XA Contusion of left foot, initial encounter; W20.8XXA Other cause of strike by thrown, projected or falling object, initial encounter; Y92.009 Unspecified place in unspecified non-institutional (private) residence as the place of occurrence of the external cause; R03.0 Elevated blood-pressure reading, without diagnosis of hypertension; Z91.048 Other nonmedicinal substance allergy status; Z88.3 Allergy status to other anti-infective agents; Z87.891 Personal history of nicotine dependence
CPT/HCPCS: 99213; G0463